=== PATIENT | female | born 1960 | race Caucasian/White ===

== ENCOUNTER → 2017-02-17 | Outpatient (CLI) | payer OTHER ==
--- NOTE | 2017-02-17 13:58 | MR ---
EXAMINATION TYPE: MR lumbar spine wo con DATE OF EXAM: 02/17/2017 1:24 PM COMPARISON: NONE HISTORY: Sciatica, Chronic low back pain TECHNIQUE: Multiplanar, multisequence images of the lumbar spine were acquired. L1-L2: Small central posterior disc bulge causes minimal anterior mass effect on the thecal sac. L2-L3: Normal disc appearance without desiccation. No herniation, protrusion or disc bulging. No ca nal stenosis is present. Foramina are patent bilaterally. L3-L4: Superior endplate of L3 shows Schmorl's node, minimal endplate depression, there is spondylosi s, endplate discogenic marrow signal change. No significant foraminal encroachment, disc herniation, or central stenosis L4-L5: Minimal grade 1 anterolisthesis. There is endplate marrow signal change, spondylosis, disc hei ght obtained. Facet arthropathy is present with hypertrophy of ligamentum flavum. On mild central amador nosis. Listhesis contributes to cause some minimal foraminal encroachment. L5-S1: There is a posterior disc herniation centrally which contacts the proximal S1 nerve roots and shows mass effect on the S1 nerve roots, there is contact the anterior thecal sac. Facet arthropathy changes present. Circumferential extension of endplate disc complex causes mild foraminal encroachmen t. There is spondylosis with endplate discogenic marrow signal change, loss of disc height and signal . Lumbar segments are intact. No paraspinal masses are identified. Conus medullaris has a normal appe arance. Cortical cyst is suspected within the left kidney but incompletely evaluated. There is a mild spinal curvature. IMPRESSION: Degenerative disc disease, foraminal encroachment, facet arthropathy. Disc herniation at L5-S1 causes mass effect on the bilateral S1 nerve roots. Additional findings above.
== END | disposition home or self-care (01) ==
LOC: RADMRIMAIN 12:33
PROVIDERS: ATTEND Family Medicine
DX: M51.16 Intervertebral disc disorders with radiculopathy, lumbar region (principal); M51.17 Intervertebral disc disorders with radiculopathy, lumbosacral region; M46.86 Other specified inflammatory spondylopathies, lumbar region
CPT/HCPCS: 72148

== ENCOUNTER 2017-02-21 10:04 | Emergency (ER) | payer OTHER ==
[2017-02-21 10:21] VITALS: TEMP 97.7
[2017-02-21] MEDS ORDERED: HYDROcodone/APAP 5-325MG 1 EACH TAB PO STA (10:29)
--- NOTE | 2017-02-21 10:58 | ED ---
Lower Extremity Injury HPI - General Chief Complaint: Extremity Injury, Lower Stated Complaint: LEFT HIP AND LEG PAIN, NO TRAUMA Time Seen by Provider: 02/21/17 10:24 Source: patient Mode of arrival: ambulatory Limitations: no limitations - History of Present Illness Initial Comments: This 56-year-old white female presents complaining of some left hip pain. She states that she was climbing some stairs approximately one week ago and she felt a pop or click in her left hip. She has had some pain into that region ever since. It is worse with ambulation. She denies any previous left hip pain. Seems radiate into her left groin and left leg approximately. She also complains of some chronic low back pain and had an MRI scan 3 days ago with unknown results. She has tried some Motrin 800 with no relief. No other complaints or modifying factors. - Related Data Home Medications Medication Instructions Recorded Confirmed Fluticasone Nasal [place] [Flonase 1 spr EA NOSTRIL BID PRN 02/21/17 02/21/17 Nasal [place]] Ibuprofen [Motrin] 800 mg PO Q6H PRN 02/21/17 02/21/17 Levothyroxine Sodium [Synthroid] 50 mcg PO DAILY 02/21/17 02/21/17 Loratadine [Claritin] 10 mg PO HS 02/21/17 02/21/17 metFORMIN HCL [Glucophage] 500 mg PO QAM 02/21/17 02/21/17 Previous Rx's Medication Instructions Recorded Hydrocodone/Acetaminophen [[place] 1 - 2 each PO Q4HR PRN #20 tab 02/21/17 5-325] predniSONE 20 mg PO BID #10 tab 02/21/17 Allergies Allergy/AdvReac Type Severity Reaction Status Date / Time No Known Allergies Allergy Verified 02/21/17 10:54 Review of Systems ROS Statement: Those systems with pertinent positive or pertinent negative responses have been documented in the HPI. ROS Other: All systems not noted in ROS Statement are negative. Past Medical History Past Medical History: Diabetes Mellitus, Thyroid Disorder History of Any Multi-Drug Resistant Organisms: None Reported Past Surgical History: Appendectomy, Hysterectomy Past Psychological History: No Psychological Hx Reported Smoking Status: Former smoker Past Alcohol Use History: None Reported Past Drug Use History: None Reported General Exam Limitations: no limitations General appearance: alert, in no apparent distress GI/Abdominal exam: Present: soft. Absent: distended, tenderness Extremities exam: Present: normal inspection, tenderness (There is tenderness noted to the left hip joint. This is worse with any range of motion of the left hip, especially external and internal rotation. There is mild tenderness to the proximal femur. There is mild tenderness present to the bilateral lower back worse on the left side. Strength is intact to lower extremities.). Absent : pedal edema, joint swelling, calf tenderness Neurological exam: Present: alert, oriented X3. Absent: motor sensory deficit Psychiatric exam: Present: normal affect, normal mood Skin exam: Present: warm, intact. Absent: rash Course Vital Signs 02/21/17 10:17 Temperature 97.7 F Pulse Rate 89 Respiratory 17 Rate Blood Pressure 140/83 O2 Sat by Pulse 97 Oximetry Medical Decision Making - Medical Decision Making The patient was seen and examined. All diagnostics were reviewed. She received 2 [place] for pain. MRI results were reviewed from 3 days ago and this does show a herniated disc at L5-S1 with some impingement on the bilateral S1 nerve roots. There is also degenerative disc disease and arthritis. X-rays are taken of the left femur, left hip, and AP pelvis. The x-rays of the left hip show degenerative changes as well as a spur formation. There is no fracture or dislocation. The x-rays of the femur and the the pelvis are essentially negative. Overall, it is felt that she has degenerative changes of her hip causing her some pain. She also has a herniated in her back. It is felt as though she would benefit from follow-up with a back specialist and she is agreeable. Disposition Clinical Impression: Arthritis of left hip, Lumbar herniated disc Disposition: HOME SELF-CARE Condition: Good Instructions: Hip Pain (ED), Osteoarthritis (ED), Lumbar Disc Herniation (ED) Prescriptions: Hydrocodone/Acetaminophen [[place] 5-325] 1 - 2 each PO Q4HR PRN #20 tab PRN Reason: Pain predniSONE 20 mg PO BID #10 tab Referrals: Mile Painting MD [Primary Care Provider] - 02/25/17 Sarah Morales DO [Doctor of Osteopathic Medicine] - 02/25/17 Time of Disposition: 11:17
--- NOTE | 2017-02-21 11:01 | XR ---
EXAMINATION TYPE: XR Hip Complete LT, XR pelvis AP view, XR femur LT DATE OF EXAM: 02/21/2017 10:54 AM CLINICAL HISTORY: pain TECHNIQUE: Multiple views were obtained of the left hip, pelvis and femur. COMPARISON: None. FINDINGS: There is no acute fracture/dislocation evident. The joint spaces appear mildly narrowed. M ild spur formation arising from the greater trochanter. Nutrient foramina mid to distal left femoral diaphysis. The overlying soft tissue appears unremarkable. IMPRESSION: 1. There is no acute fracture or dislocation. ICD 10 NO FRACTURE, INITIAL EVALUATION
[2017-02-21] MEDS ORDERED: predniSONE 20 MG TAB PO STA (11:20)
[2017-02-21 11:32] VITALS: BP 113/60; PULSE 97; RESP 16
== END 2017-02-21 11:31 | disposition home or self-care (01) ==
LOC: EC 10:04
DX: M16.12 Unilateral primary osteoarthritis, left hip (principal); M51.26 Other intervertebral disc displacement, lumbar region; E07.9 Disorder of thyroid, unspecified; E11.9 Type 2 diabetes mellitus without complications; Z87.891 Personal history of nicotine dependence; Z79.84 Long term (current) use of oral hypoglycemic drugs; Z79.52 Long term (current) use of systemic steroids; Z79.899 Other long term (current) drug therapy
CPT/HCPCS: 99284; 72170; 73502; 73552; J7512

== ENCOUNTER → 2017-08-31 | Outpatient (CLI) | payer OTHER ==
[2017-08-31 09:38] LABS: ALT 44 U/L (9-52); AST 27 U/L (14-36); Alkaline Phosphatase 64 U/L (38-126); Anion Gap 11 mmol/L; Blood Urea Nitrogen 10 mg/dL (7-17); Carbon Dioxide 25 mmol/L (22-30); Chloride 104 mmol/L (98-107); Cholesterol 172 mg/dL (<200); Glucose 131 mg/dL (74-99); HDL Cholesterol 80 mg/dL (40-60); Non-African American GFR(MDRD) >60 (>60 ml/min/1.73 sqM); Potassium 5.1 mmol/L (3.5-5.1); Sodium 140 mmol/L (137-145); Total Bilirubin 0.5 mg/dL (0.2-1.3); Total Protein 7.3 g/dL (6.3-8.2)
[2017-08-31 13:06] LABS: Hemoglobin A1C 6.4 % (4.2-6.1)
[2017-08-31 16:34] LABS: Urine Creatinine 45.7 mg/dL
== END | disposition home or self-care (01) ==
LOC: LABWHC1 08:54
PROVIDERS: ATTEND Family Medicine
DX: E11.9 Type 2 diabetes mellitus without complications (principal); E03.9 Hypothyroidism, unspecified; R16.0 Hepatomegaly, not elsewhere classified; L03.90 Cellulitis, unspecified
CPT/HCPCS: 36415; 80053; 80061; 82043; 82570; 83036; 84443

== ENCOUNTER 2018-02-09 11:14 | Emergency (ER) | payer OTHER ==
[2018-02-09 11:31] VITALS: BP 134/63; PULSE 99; RESP 20; TEMP 97.2
[2018-02-09] MEDS ORDERED: KETOROLAC 30 MG/ML 1 ML VIAL IM STA (12:26)
== END 2018-02-09 12:35 | disposition home or self-care (01) ==
LOC: EC 11:14
DX: S46.912A Strain of unspecified muscle, fascia and tendon at shoulder and upper arm level, left arm, initial encounter (principal); X58.XXXA Exposure to other specified factors, initial encounter
CPT/HCPCS: 96372; 99283

== ENCOUNTER → 2019-06-08 | Outpatient (CLI) | payer OTHER ==
--- NOTE | 2019-06-11 08:51 | MM ---
Reason for exam: screening (asymptomatic). Last mammogram was performed 2 years and 7 months ago. Physical Findings: A clinical breast exam by your physician is recommended on an annual basis and results should be correlated with mammographic findings. MG Screening Mammo w CAD Bilateral CC, MLO, and XCCL view(s) were taken. Prior study comparison: November 03, 2016, bilateral MG screening mammo w CAD. August 20, 2014, bilateral MG screening mammo w CAD. There are scattered fibroglandular densities. Benign appearing bilateral calcifications. No significant changes when compared with prior studies. ASSESSMENT: Benign, BI-RAD 2 RECOMMENDATION: Routine screening mammogram of both breasts in 1 year.
== END | disposition home or self-care (01) ==
LOC: RADMAMWWP 11:53
PROVIDERS: ATTEND Family Medicine
DX: Z12.31 Encounter for screening mammogram for malignant neoplasm of breast (principal)
CPT/HCPCS: 77067

== ENCOUNTER → 2020-09-02 | Outpatient (CLI) | payer OTHER ==
--- NOTE | 2020-09-02 11:58 | BD ---
EXAMINATION TYPE: Axial Bone Density DATE OF EXAM: 09/02/2020 COMPARISON: NONE CLINICAL HISTORY: Postmenopausal female. Height: 5 FT 2 1/2 IN Weight: 238 FRAX RISK QUESTIONS: Alcohol (3 or more units per day): NO Family History (Parent hip fracture): NO Glucocorticoids (More than 3mos): NO (Ex: prednisone, prednisolone, methylprednisolone, dexamethasone, and hydrocortisone). History of Fracture in Adulthood: YES Secondary Osteoporosis: 1. Type 1 Diabetes: NO 2. Hyperthyroidism: NO 3. Menopause before 45: NO 4. Malnutrition: NO 5. Chronic liver disease: NO Rheumatoid Arthritis: YES Current Tobacco Use: NO RISK FACTORS HISTORY OF: Family History of Osteoporosis: NO Active: YES Postmenopausal woman: PART HYST AGE 35 SYMPTOMS AFTER AGE 51 MEDICATIONS: Thyroid Medications: YRS Which medication: SYNTHROID How Long: SEV YEARS Additional Medications: SYNTHROID, METFORMIN, CELEBREX, PAIN MEDS Additional History: EXAM MEASUREMENTS: Bone mineral densitometry was performed using the [employer]. Bone mineral density as measured about the Lumbar spine is: ----- L1-L4(G/cm2): 1.236 T Score Values are as follows: ----- L2: 0.0 ----- L3: 0.3 ----- L4: 0.8 ----- L1-L4: 0.5 BASELINE Bone mineral density about the R hip (g/cm2): 1.006 Bone mineral density about the L hip (g/cm2): 0.999 T Score values are as follows: -----R Neck: -0.2 -----L Neck: -0.3 -----R Total: 1.3 -----L Total: 1.6 BASELINE IMPRESSION: Normal (Values between +1 and -1 indicate normal bone mass). Consider repeating this study in 5 year s or sooner if there is some new clinical indication. NOTE: T-SCORE=SD OF THE YOUNG ADULT MEAN.
--- NOTE | 2020-09-03 11:05 | MM ---
Reason for exam: screening (asymptomatic). Last mammogram was performed 1 year and 3 months ago. Physical Findings: A clinical breast exam by your physician is recommended on an annual basis and results should be correlated with mammographic findings. MG 3D Screening Mammo W/Cad Bilateral CC, MLO, and XCCL view(s) were taken. Prior study comparison: June 08, 2019, bilateral MG screening mammo w CAD. November 03, 2016, bilateral MG screening mammo w CAD. There are scattered fibroglandular densities. There is no discrete abnormality. No significant changes when compared with prior studies. ASSESSMENT: Negative, BI-RAD 1 RECOMMENDATION: Routine screening mammogram of both breasts in 1 year.
== END | disposition home or self-care (01) ==
LOC: RADMAMWWP 09:23
PROVIDERS: ATTEND Family Medicine
DX: Z12.31 Encounter for screening mammogram for malignant neoplasm of breast (principal); Z13.820 Encounter for screening for osteoporosis; M81.0 Age-related osteoporosis without current pathological fracture
CPT/HCPCS: 77063; 77067; 77080

== ENCOUNTER → 2020-12-16 | Outpatient (CLI) | payer OTHER ==
--- NOTE | 2020-12-16 16:30 | XR ---
EXAMINATION TYPE: XR ankle limited LT DATE OF EXAM: 12/16/2020 COMPARISON: None HISTORY: Swelling TECHNIQUE: Left ankle is examined in 3 projections. FINDINGS: There is a tiny ossification inferior to the medial malleolus may be a small avulsion. Mild soft tissue swelling is diffusely present around the ankle. The ankle mortise as visualized appears normal. Plantar and Achilles tendon calcaneal heel spurs are present. The lateral projection there is some ossification superior to the distal talus, likely related to deg enerative change. Small avulsion could be considered. Correlate with location of the patient's pain. IMPRESSION: 1. Suspected avulsion from the inferior medial malleolus. 2. Diffuse soft tissue swelling around the ankle. 3. Avulsion versus secondary ossification center anterior dorsal talus. Correlate with location of pa tient's pain.
--- NOTE | 2020-12-16 16:32 | XR ---
EXAMINATION TYPE: XR foot limited LT DATE OF EXAM: 12/16/2020 COMPARISON: 09/02/2016 HISTORY: Pain TECHNIQUE: Three-view left foot FINDINGS: Joint spaces appear preserved. There is a small ossification over the distal talus. Clinica l correlation for location of patient's pain is recommended. This appears new and an avulsion should be considered. IMPRESSION: 1. Suspected avulsion from the distal anterior dorsal talus. Correlate with location of the patient' s pain. 2. Patient suspected inferior medial malleolar fractures not visualized this exam. Please see left an kle dictation same date.
== END | disposition home or self-care (01) ==
LOC: RADXRMAIN 14:46
PROVIDERS: ATTEND Nurse Practitioner
DX: M79.89 Other specified soft tissue disorders (principal)

== ENCOUNTER → 2022-01-28 | Outpatient (CLI) | payer OTHER ==
--- NOTE | 2022-01-29 14:24 | MM ---
Reason for exam: screening (asymptomatic). Last mammogram was performed 1 year and 5 months ago. History: Patient is postmenopausal. Physical Findings: A clinical breast exam by your physician is recommended on an annual basis and results should be correlated with mammographic findings. MG Screening Mammo w CAD Bilateral CC and MLO view(s) were taken. CV view(s) were taken of the left breast. Prior study comparison: September 02, 2020, bilateral MG 3d screening mammo w/cad. June 08, 2019, bilateral MG screening mammo w CAD. There are scattered fibroglandular densities. No significant changes when compared with prior studies. ASSESSMENT: Benign, BI-RAD 2 RECOMMENDATION: Routine screening mammogram of both breasts in 1 year.
== END | disposition home or self-care (01) ==
LOC: RADMAMWWP 09:02
PROVIDERS: ATTEND Family Medicine
DX: Z12.31 Encounter for screening mammogram for malignant neoplasm of breast (principal)
CPT/HCPCS: 77067

== ENCOUNTER → 2024-09-28 | Outpatient (CLI) | payer OTHER ==
--- NOTE | 2024-10-07 17:21 | MM ---
Reason for Exam: Screening (asymptomatic). Last mammogram was performed 2 year(s) and 8 month(s) ago. Patient History: Menarche at age 13. First Full-Term at age 20. Hysterectomy at age 41. Postmenopausal. Risk Values: Shanti 5 year model risk: 1.1%. NCI Lifetime model risk: 4.9%. Prior Study Comparison: 06/08/2019 Bilateral Screening Mammogram, [facility]. 09/02/2020 Bilateral Screening Mammogram, [facility]. 01/28/2022 Bilateral Screening Mammogram, [facility]. Tissue Density: There are scattered areas of fibroglandular density. Findings: Analyzed By CAD. The pattern is symmetrical. Pattern appears symmetrical. Scattered small nodularities are present posterior bilateral breasts with benign vascular calcification is present. No suspicious groups of microcalcifications, spiculated or lobular masses, architectural distortion or other secondary signs of malignancy are mammographically apparent. Overall Assessment: Benign, BI-RAD 2 Management: Screening Mammogram of both breasts in 1 year. A negative mammogram report should not preclude additional follow up of suspicious palpable abnormalities. Patient should continue monthly self breast exam. A clinical breast exam by your physician is recommended on an annual basis and results should be correlated with mammographic findings. Note on Shanti scores and lifetime risk: 1. A Shanti score greater than 3% is considered moderate risk. If this is the case, consider specialist referral to assess eligibility for a risk reducing agent. 2. If overall lifetime risk for the development of breast cancer is 20% or higher, the patient may qualify for future screening with alternating mammogram and breast MRI. [facility], , 10/07/2024 5:19 PM. Electronically signed and approved by: Eirc Dejesus D.O. Radiologis
== END | disposition home or self-care (01) ==
LOC: RADMAMWWP 13:32
PROVIDERS: ATTEND Family Medicine
DX: Z12.31 Encounter for screening mammogram for malignant neoplasm of breast (principal); R92.323 Mammographic fibroglandular density, bilateral breasts; Z78.0 Asymptomatic menopausal state
CPT/HCPCS: 77067